=== PATIENT | female | born 1985 | race Caucasian/White ===

== ENCOUNTER 2020-01-25 08:18 | Outpatient (CLI) | payer BC, SELFPAY ==
--- NOTE | ~2020-01-25 | US_ITS ---
EXAMINATION: US thyroid DATE: 01/25/2020 09:05 INDICATION: Nontoxic single thyroid nodule TECHNIQUE: Multiple ultrasound images of the thyroid were obtained. COMPARISON: 03/24/2018 FINDINGS: The right thyroid lobe measures 5.6 x 1.9 x 2.3 cm. Minimal increase in size of a now 3.3 x 2.1 x 2.1 cm predominantly solid hypoechoic nodule in the right thyroid lobe which previously measured 3.2 x 1 .9 x 1.8 cm. The nodule has smooth margins is wider than tall with small amount of coarse shadowing c alcification. (TI-RADS 4, moderately suspicious , FNA if >=1.5 cm, annual followup is >1 cm). The lef t thyroid lobe is not visualized and reportedly surgically absent. No abnormal nodule/soft tissue at the left thyroid fossa. IMPRESSION: 1. 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 2. Status post left thyroidectomy. Reviewed, dictated and finalized at location A. IMPRESSION: 1. Minimal increase in size of a 3.2 cm TI RADS 4 right thyroid nodule with int ervening biopsy demonstrating consistent with benign follicular nodule with fe atures of colloid cyst . 2. Status post left thyroidectomy.
== END 2020-01-25 08:19 | disposition home or self-care (01) ==
PROVIDERS: Visit Provider Otolaryngology
DX: E04.1 Nontoxic single thyroid nodule (principal)
CPT/HCPCS: 76536

== ENCOUNTER 2020-10-03 07:38 | Outpatient (CLI) | payer OTHER, SELFPAY ==
--- NOTE | ~2020-10-03 | US_ITS ---
EXAMINATION: US thyroid DATE: 10/03/2020 08:25 INDICATION: Nontoxic single thyroid nodule TECHNIQUE: Multiple ultrasound images of the thyroid were obtained. COMPARISON: None. FINDINGS: The right thyroid lobe measures 4.9 x 2.7 x 2.2 cm. Status post left thyroidectomy with no abnormal t issue at the left thyroid fossa. Predominant a solid, slightly hypoechoic wider than tall 3.8 x 2.1 x 2.3 cm nodule with smooth margins and without echogenic foci in the right thyroid (TI-RADS 4, modera tely suspicious , FNA if >=1.5 cm, annual followup is >=1 cm). There is normal echotexture, echogenic ity and vascular flow throughout the thyroid gland. IMPRESSION: 1. 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 2. Status post left thyroidectomy. Reviewed, dictated and finalized at location A. IMPRESSION: 1. Continued mild increase in size of a now 3.8 cm TI RADS 4 right thyroid nodu le with prior biopsy on 04/28/2018 demonstrating consistent with benign follicul ar nodule with features of colloid cyst . 2. Status post left thyroidectomy.
== END 2020-10-03 07:39 | disposition home or self-care (01) ==
LOC: ANHIMG 07:43
PROVIDERS: PCP Family Medicine; Visit Provider Internal Medicine Endocrinology, Diabetes & Metabolism
DX: E04.1 Nontoxic single thyroid nodule (principal); E89.0 Postprocedural hypothyroidism
CPT/HCPCS: 76536

== ENCOUNTER 2020-12-13 09:21 | Outpatient (CLI) | payer OTHER, SELFPAY ==
--- NOTE | ~2020-12-13 | US_ITS ---
EXAMINATION: US pelvic complete w TV DATE: 12/13/2020 10:07 INDICATION: Incomplete TECHNIQUE: Multiple transabdominal and endovaginal sonographic images of the pelvis were obtained. COMPARISON: None. FINDINGS: The uterus measures 8.9 x 3.9 x 5.4 cm. The endometrial complex measures 13 mm in thickness at the f undus containing hypoechoic material with some internal vascular flow on color Doppler consistent wit h retained products of conception. The right ovary measures 2.9 x 1.6 x 1.9 cm. The left ovary measur es 3.2 x 2.3 x 2.5 cm. Small anechoic cysts/follicles at both ovaries. Vascular flow with arterial wa veforms is identified at both ovaries on color Doppler. There is a small amount of free fluid in the pelvis at the cul-de-sac and along side both ovaries. IMPRESSION: 1. Retained products of conception. Reviewed, dictated and finalized at location B.
== END 2020-12-13 09:22 | disposition home or self-care (01) ==
PROVIDERS: PCP Family Medicine; Visit Provider Student in an Organized Health Care Education/Training Program
DX: O03.4 Incomplete spontaneous abortion without complication (principal)
CPT/HCPCS: 76830; 76856

== ENCOUNTER 2020-12-14 01:15 | Day surgery (SDC) | payer OTHER, SELFPAY ==
--- NOTE | 2020-12-13 14:00 | P.PNAN_ITS ---
Anes - Initial Pre Proc Eval Procedure: Operation Date: 12/14/20 13:00 Proposed Procedures p Suction Dilatation and Curettage - Jose Siegel MD Date/Time: 12/13/20 14:00 Surgeon: Jose Siegel MD Pre Op Diagnosis: Missed Ab Patient Data Age: 35 Gender: F Height: Weight: Allergies Allergy/AdvReac Type Severity Reaction Status Date / Time lactose Allergy Unknown Hives Verified 12/14/20 11:18 Dairy Allergy Severe Anaphylaxis Uncoded 12/14/20 11:18 Home Medications Medication Instructions Recorded Confirmed Type calcium carbonate 500 mg calcium 500 mg PO HS 02/15/20 12/14/20 History (1,250 mg) tablet Saccharomyces boulardii 250 mg 250 mg PO DAILY 09/26/20 12/14/20 History capsule levothyroxine 112 mcg tablet 112 mcg PO DAILY #60 tablet 10/17/20 12/14/20 Rx mecobalamin (vitamin B12) 1,000 1,000 mcg PO DAILY 10/18/20 12/14/20 History mcg chewable tablet magnesium See Rx Instructions .ROUTE .COMPLEX 12/13/20 12/14/20 History multivit with min-folic acid 1 tablet PO DAILY 12/13/20 12/14/20 History [Adult One Daily Multivitamin] Patient hx anesthesia problems: none Family hx anesthesia problems: none PMFSH Past Medical History Medical History Bradycardia Depression Hx of hypokalemia Hypothyroidism (acquired) Mitral valve disorder Right thyroid nodule Subclinical hyperthyroidism Surgical History Surgical History History of thyroidectomy (~2014) Left side mass Hx of LASIK (~2017) Family History Family History Mother Family history of migraine headaches Family history of allergic disorder Grandparent Diabetes mellitus Other Family history of alcoholism Family history of glaucoma Family history of hypercholesterolemia Family history of mental disorder Hypertension Social History Social History Social History: , 2 children. 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 Smoking status: Never smoker Second hand tobacco smoke exposure: No Alcohol intake: former Drinks per week: 6 Alcohol use details: both beer and hard alcohol Substance use: never Substance use type: does not use Living arrangements: with family Spiritual care concerns: No Anes - Eval Final PreProcedure Day of Procedure 12/13/20 14:00 Patient weight: normal Heart: regular rate and rhythm Lungs: clear to auscultation and normal air movement Airway: Mallampati scale class II Neurological: alert and oriented Last oral intake: >/= 8 hours ASA classification: II Emergent: no Anesthetic plan: proceed Anesthesia type and monitoring: general GIVS and standard monitoring Informed Consent: The patient's anesthetic plan and its attendant risks and benefits were discussed with the patient/family/POA. Questions were solicited and answers provided to the satisfaction of the patient/family/POA.
[2020-12-13 15:50] VITALS: BMI 21.4
[2020-12-14] MEDS: LACTATED RINGERS 1,000 ML 30 ML IV CONT (12:03)
[2020-12-14] MEDS: ACETAMINOPHEN 500 MG TABLET 1000 MG PO (12:09)
--- NOTE | 2020-12-14 12:11 | SUR.PREOP ---
SPOKE WITH DR SEGAL, PT STATES SHE PASSES THE FETUS AT HOME. DR SEGAL CONFIRMS THIS. NO NEED TO SIGN IDPH AND DISPOSITION FORM
[2020-12-14 12:12] VITALS: BP 111/64; PULSE 75; RESP 16; TEMP 37.1; O2SAT 100; BMI 20.9
--- NOTE | 2020-12-14 12:13 | PM.IMHP ---
H&P: HPI History of Present Illness Date/Time: 12/14/20 12:13 35 y/o with SAB, now with continued bleeding. Ultrasound exam suggests retained products of conception. She is here for D&C. No fever, some cramping. Chief Complaint: Bleeding Review of Systems Review of Systems: All systems reviewed & are unremarkable except as noted in HPI and below PMFSH Past Medical History Medical History Bradycardia Depression Hx of hypokalemia Hypothyroidism (acquired) Mitral valve disorder Right thyroid nodule Subclinical hyperthyroidism Surgical History Surgical History History of thyroidectomy (~2014) Left side mass Hx of LASIK (~2017) Family History Family History Mother Family history of migraine headaches Family history of allergic disorder Grandparent Diabetes mellitus Other Family history of alcoholism Family history of glaucoma Family history of hypercholesterolemia Family history of mental disorder Hypertension Social History Social History Social History: , 2 children. 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 status: Never smoker Second hand tobacco smoke exposure: No Alcohol intake: former Drinks per week: 6 Alcohol use details: both beer and hard alcohol Substance use: never Substance use type: does not use Living arrangements: with family Spiritual care concerns: No Meds Home Medications and Allergies Home Medications Medication Instructions Recorded Confirmed Type calcium carbonate 500 mg calcium 500 mg PO HS 02/15/20 12/14/20 History (1,250 mg) tablet Saccharomyces boulardii 250 mg 250 mg PO DAILY 09/26/20 12/14/20 History capsule levothyroxine 112 mcg tablet 112 mcg PO DAILY #60 tablet 10/17/20 12/14/20 Rx mecobalamin (vitamin B12) 1,000 1,000 mcg PO DAILY 10/18/20 12/14/20 History mcg chewable tablet magnesium See Rx Instructions .ROUTE .COMPLEX 12/13/20 12/14/20 History multivit with min-folic acid 1 tablet PO DAILY 12/13/20 12/14/20 History [Adult One Daily Multivitamin] Allergies Allergy/AdvReac Type Severity Reaction Status Date / Time lactose Allergy Unknown Hives Verified 12/14/20 11:18 Dairy Allergy Severe Anaphylaxis Uncoded 12/14/20 11:18 Vital Signs Vital Signs - 24 hr 12/14/20 12:12 Temperature 37.1 C Pulse Rate 75 Respiratory Rate 16 Blood Pressure 111/64 Pulse Oximetry 100 Exam Const: Orientation/consciousness: patient oriented x3 Other: Well-developed, well-nourished female in no acute distress. Neck: Thyroid: thyroid normal Lymphatic: no lymphadenopathy noted (in neck, axilla or inguinal nodes) Resp: Effort & Inspection: normal respiratory effort Auscultation: clear to auscultation bilaterally Cardio: Rate: regular rate Rhythm: regular rhythm Heart sounds: S1 normal heart sound present and S2 normal heart sound present GI: Other: ABD: Soft, nontender, nondistended. No guarding or rebound tenderness. No hepatosplenomegaly. : General: Yes no CVA tenderness Other: Exam deferred to OR Back/Spine/Pelvis: Back: no CVA tenderness Skin: General skin exam: normal color and no rashes or lesions noted Neuro: General: patient oriented x3 Extrem: Other: Extremities: nontender with no edema Psych: Mental Status: mental status grossly normal Affect: normal affect Assessment and Plan Assessment and plan (1) Incomplete spontaneous : Code(s): O03.4 - Incomplete spontaneous without complication Status: Acute Assessment and Plan: A: Incomplete SAB. P: Offered dilation and suction curettage. She understands risks of surgery to include risks of anesthesia, risks of pain, infection, bleeding, blood products, thromboembolic phenomena an
--- NOTE | 2020-12-14 12:16 | WPDHPUPDATE1 ---
History and Physical Update Update Date/Time: 12/14/20 12:16 History and Physical has been reviewed, including an updated exam of the patient. There are NO changes in the patient's condition. Risks, benefits, and alternatives have been discussed and questions answered. Patient agrees to proceed with procedure.
[2020-12-14 12:21] LABS: Hematocrit 36.4 % (37.0-47.0); Hemoglobin 12.4 g/dL (12.0-15.0)
[2020-12-14 13:38] VITALS: BP 104/55; PULSE 64; RESP 16; O2SAT 98
--- NOTE | 2020-12-14 13:38 | P.OP_ITS ---
Procedure Note - Detailed Date of Procedure 12/14/20 Pre-op Diagnosis Incomplete SAB Post-op Diagnosis same Procedure Performed Dilation and suction curettage Surgeon Jose Siegel MD Anesthesia MAC and local (1% lidocaine paracervical block) Findings POC noted extruding through cervix. Cervix already dilated at start of procedure. Small additional POC noted on curettage. Description of Procedure The patient was taken to the operating room where she was prepared and draped in the usual sterile fashion in the dorsal lithotomy position. The bladder was drained with a red rubber catheter. A sterile speculum was placed into the vagina. A ring forceps was used to grasp and remove the tissue extruding through the cervix. The anterior lip of the cervix was grasped with a single- tooth tenaculum. Ten mL of 1% lidocaine was administered in a paracervical block. The 8mm Hegar dilator was able to be passed. The 8mm curved tip suction curette was advanced. Suction curettage was performed and products of conception were aspirated. Sharp curettage was then performed until a good uterine cry was noted. A final pass with the suction curette was made. The tenaculum was removed. Hemostasis was excellent. Sponge, lap, needle and instrument counts were correct. The patient was taken to the recovery room in stable condition. I was present and scrubbed for the entire procedure. Estimated Blood Loss 30 Drains No Packing No Pathology yes (endometrial curettings) Complications None Condition stable Disposition PACU
[2020-12-14 14:10] VITALS: BP 106/63; PULSE 51
[2020-12-14 14:25] VITALS: BP 110/64; PULSE 47
== END 2020-12-14 14:35 | disposition home or self-care (01) ==
PROVIDERS: PCP Family Medicine; Visit Provider Obstetrics & Gynecology
PROC: (CPT 59812; principal; 2020-12-14 13:00)
DX: O03.4 Incomplete spontaneous abortion without complication (principal); E89.0 Postprocedural hypothyroidism; I34.1 Nonrheumatic mitral (valve) prolapse
CPT/HCPCS: 59812; 36415; 85014; 85018; 85461; 88305; A9270; J1100; J2250; J2405; J2704; J3010; J7030; J7120

== ENCOUNTER 2020-12-20 08:15 | Outpatient (CLI) | payer OTHER, SELFPAY ==
--- NOTE | ~2020-12-20 | XR_ITS ---
EXAMINATION: XR chest 2V DATE: 12/20/2020 08:39 INDICATION: Pulmonary nodules TECHNIQUE: PA and lateral views of the chest are obtained. COMPARISON: None available FINDINGS: The lungs are free of acute opacities. No pulmonary nodules are identified. There is no ple ural effusion or pneumothorax. The cardiomediastinal silhouette is normal. The visualized bones and s oft tissues are unremarkable. IMPRESSION: 1. No acute cardiopulmonary abnormality. Reviewed, dictated and finalized at location A.
== END 2020-12-20 08:16 | disposition home or self-care (01) ==
LOC: ANHIMG 08:21
PROVIDERS: PCP Family Medicine; Visit Provider Family Medicine
DX: R93.89 Abnormal findings on diagnostic imaging of other specified body structures (principal)
CPT/HCPCS: 71046

== ENCOUNTER 2021-04-05 08:47 | Outpatient (CLI) | payer OTHER, SELFPAY ==
--- NOTE | ~2021-04-05 | US_ITS ---
EXAMINATION: US thyroid EXAM DATE: 04/05/2021 09:45 INDICATION: Increasing right nodule size. Right thyroid lobe biopsied today. TECHNIQUE: Multiple grayscale and Doppler images of the thyroid were obtained (by a technologist who performed the scan) and subsequently reviewed. Individual nodules and recommendations may be reporte d in accordance with TI-RADS system as designated by the 2017 ACR White Paper TI-RADS committee. Comp shivson is made to prior examination from 10/03/2020, 03/24/2018. FINDINGS: The right thyroid lobe measures 4.0 x 2.0 x 2.3 cm, with significant portion of this volume taken up by a hypervascular category TR 4 nodule measuring 3.2 x 1.5 x 2.1 cm. Dimensions provided on exam in September were 3.8 x 2.1 x 2.3 cm, and in 2017 3.2 x 1.8 x 1.9 cm. Correlate with histology results. IMPRESSION: 1. Right thyroid lobe nodule unchanged in size accounting for differences in technique. 2. Unremarkable left thyroidectomy bed. Reviewed, dictated and finalized at location B. TATISTICS DIRECTOR IMPRESSION: 1. Right thyroid lobe nodule unchanged in size accounting for differences in t echnique. 2. Unremarkable left thyroidectomy bed.
--- NOTE | ~2021-04-05 | US_ITS ---
EXAMINATION: US FNA w image guidance DATE: 04/05/2021 09:48 INDICATION: Right thyroid nodule. TECHNIQUE: The procedure and its benefits and risks were discussed with the patient. Risks specifically discusse d included bleeding. The patient verbalized understanding of the risks and agreed to proceed. The nec k was prepped and draped in the usual sterile manner. 1% lidocaine was used for local anesthesia. 5 passes were made with a 25G needle into the lesion under ultrasound guidance. There were no immedia te complications. FINDINGS: Grayscale ultrasound images demonstrate needles advanced into a 3.7 cm nodule in right thyroid lobe f or biopsy. IMPRESSION: 1. Ultrasound-guided fine needle aspiration of a 3.7 cm nodule in right thyroid lobe. Reviewed, dictated and finalized at location A. NSTITCH ELASTIC ATTACHER IMPRESSION: 1. Ultrasound-guided fine needle aspiration of a 3.7 cm nodule in right thyroi d lobe.
== END 2021-04-05 08:48 | disposition home or self-care (01) ==
LOC: ANHIMG 08:48
PROVIDERS: PCP Family Medicine; Visit Provider Internal Medicine Endocrinology, Diabetes & Metabolism
DX: E03.9 Hypothyroidism, unspecified (principal); E04.1 Nontoxic single thyroid nodule
CPT/HCPCS: 10005; 76536; 88173; 88305

== ENCOUNTER 2021-06-06 07:37 | Outpatient (CLI) | payer OTHER, SELFPAY ==
[2021-06-06 20:16] LABS: Free T4 Free Thyroxine 1.23 ng/mL (0.78-2.19)
[2021-06-06 20:31] LABS: Thyroid Stimulating Hormone 0.767 uIU/mL (0.465-4.680)
== END 2021-06-06 07:38 | disposition home or self-care (01) ==
LOC: ANHASCLAB 07:40
PROVIDERS: PCP Family Medicine; Visit Provider Internal Medicine Endocrinology, Diabetes & Metabolism
DX: E03.9 Hypothyroidism, unspecified (principal)
CPT/HCPCS: 36415; 84439; 84443

== ENCOUNTER 2022-08-02 00:43 | Day surgery (SDC) | payer OTHER, SELFPAY ==
[2022-07-19 14:03] VITALS: BMI 22.3
[2022-08-02 07:52] VITALS: BP 116/72; PULSE 63; RESP 18; TEMP 36.3; O2SAT 100; BMI 22.1
[2022-08-02] MEDS: LACTATED RINGERS 1,000 ML 150 ML IV CONT (07:55)
--- NOTE | 2022-08-02 08:17 | WPDANESEPPF ---
Anes - Initial Pre Proc Eval Procedure: Operation Date: 08/02/22 09:00 Proposed Procedures p Colonoscopy - Dong Mccoy MD Date/Time: 08/02/22 08:17 Surgeon: Dong Mccoy MD Pre Op Diagnosis: hx colon polyps Patient Data Age: 37 Gender: F Height: 1.63 m Weight: 58.7 kg Last Vital Signs Temp 97.3 F L 08/02/22 07:52 Pulse 63 08/02/22 07:52 Resp 18 08/02/22 07:52 BP 116/72 08/02/22 07:52 Pulse Ox 100 08/02/22 07:52 O2 Del Method Room Air 08/02/22 07:52 Allergies Allergy/AdvReac Type Severity Reaction Status Date / Time lactose Allergy Unknown Hives Verified 08/02/22 07:50 Dairy Allergy Severe Anaphylaxis Uncoded 08/02/22 07:50 Home Medications Medication Instructions Recorded Confirmed Type multivitamin with minerals-folic 1 tablet PO DAILY 12/13/20 07/19/22 History acid 0.4 mg tablet (Adult One Daily Multivitamin) calcium carbonate 333 mg-magnesium 1 tablet PO DAILY 05/17/21 07/19/22 History oxide 133 mg-zinc gluc 5 mg tablet magnesium 100 mg tablet 100 mg PO DAILY 05/17/21 07/19/22 History prasterone (dhea) 50 mg capsule 50 mg PO 2XW 08/07/21 07/19/22 History (DHEA) progesterone micronized 100 mg 100 mg PO .COMPLEX 08/07/21 07/19/22 History capsule levothyroxine 75 mcg capsule 75 mcg PO DAILY #90 caps 03/20/22 07/19/22 Rx (Tirosint) escitalopram oxalate 10 mg tablet 10 mg PO DAILY #30 tabs 07/06/22 07/19/22 Rx (Lexapro) Lactobacillus 1 cap PO DAILY 07/19/22 07/19/22 History acidophilus-Bifidobac.animalis 2.5 billion cell capsule (Daily Probiotic) cetirizine 10 mg tablet (Zyrtec) 10 mg PO DAILY 07/19/22 07/19/22 History fluticasone propionate 50 2 spray intranasal DAILY PRN 07/19/22 07/19/22 History mcg/actuation nasal Allergy Symptoms spray,suspension (Flonase Allergy Relief) psyllium husk 3.4 gram/5.4 gram 1 tbsp PO DAILY 07/19/22 07/19/22 History oral powder (Metamucil) testosterone 1 % (50 mg/5 gram) 2 packet transdermal QAM 07/19/22 07/19/22 History transdermal gel packet Patient hx anesthesia problems: none Family hx anesthesia problems: none Results Review: All pre-operative results and documents have been reviewed as part of the pre-operative evaluation. [facility] Past Medical History Medical History (Updated 07/02/22 @ 13:45 by Owen Alvarado MD) Bradycardia Depression History of colon polyps Hx of hypokalemia Hypothyroidism (acquired) Incomplete spontaneous Miscarriage Mitral valve disorder Right thyroid nodule Subclinical hyperthyroidism Surgical History Surgical History History of thyroidectomy (~2014) Left side mass Hx of LASIK (~2017) Family History Family History Mother Family history of migraine headaches Family history of allergic disorder Grandparent Diabetes mellitus Other Family history of alcoholism Family history of glaucoma Family history of hypercholesterolemia Family history of mental disorder Hypertension Social History Social History Social History: , 2 children. 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 Smoking status: Never smoker Second hand tobacco smoke exposure: No Alcohol intake: current Drinks per week: 6 Alcohol use details: both beer and hard alcohol Substance use: never Substance use type: does not use Living arrangements: with family Spiritual care concerns: No Anes - Eval Final PreProcedure Day of Procedure 08/02/22 08:17 Patient weight: normal Heart: regular rate and rhythm Lungs: clear to auscultation Airway: Mallampati scale class II Neurological: alert and oriented Last oral intake: >/= 8 hours ASA classification: III Emergent: no Anesthetic plan: proceed Anesthesia type and monitoring: general GIVS and standard monitoring
--- NOTE | 2022-08-02 08:27 | PM.HPGS ---
History of Present Illness History of Present Illness Consent: Risks, benefits, and alternatives have been discussed and questions answered. Patient agrees to proceed with procedure. Chief complaint: hx colon polyps Narrative: Varsha Marmolejo is a 37 year old female Presents for screening colonoscopy. Patient's current weight appetite and bowel movements are normal. Patient denies abdominal pain. She has had no bleeding. Patient reports her father has had colon polyps. Patient reports at age 18 she had colon polyps identified at time of colonoscopy evaluated because of hemorrhoidal bleeding. These records are not immediately available for review. Histologic type of polyp not available. Patient presents today for neoplasia screening. Review of Systems Review of Systems: review of systems noncontributory. [facility] Past Medical History Medical History (Updated 07/02/22 @ 13:45 by Owen Alvarado MD) Bradycardia Depression History of colon polyps Hx of hypokalemia Hypothyroidism (acquired) Incomplete spontaneous Miscarriage Mitral valve disorder Right thyroid nodule Subclinical hyperthyroidism Surgical History Surgical History History of thyroidectomy (~2014) Left side mass Hx of LASIK (~2018) Family History Family History Mother Family history of migraine headaches Family history of allergic disorder Grandparent Diabetes mellitus Other Family history of alcoholism Family history of glaucoma Family history of hypercholesterolemia Family history of mental disorder Hypertension Social History Social History Social History: , 2 children. 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 Smoking status: Never smoker Second hand tobacco smoke exposure: No Alcohol intake: current Drinks per week: 6 Alcohol use details: both beer and hard alcohol Substance use: never Substance use type: does not use Living arrangements: with family Spiritual care concerns: No Meds Home Medications and Allergies Home Medications Medication Instructions Recorded Confirmed Type multivitamin with minerals-folic 1 tablet PO DAILY 12/13/20 07/19/22 History acid 0.4 mg tablet (Adult One Daily Multivitamin) calcium carbonate 333 mg-magnesium 1 tablet PO DAILY 05/17/21 07/19/22 History oxide 133 mg-zinc gluc 5 mg tablet magnesium 100 mg tablet 100 mg PO DAILY 05/17/21 07/19/22 History prasterone (dhea) 50 mg capsule 50 mg PO 2XW 08/07/21 07/19/22 History (DHEA) progesterone micronized 100 mg 100 mg PO .COMPLEX 08/07/21 07/19/22 History capsule levothyroxine 75 mcg capsule 75 mcg PO DAILY #90 caps 03/20/22 07/19/22 Rx (Tirosint) escitalopram oxalate 10 mg tablet 10 mg PO DAILY #30 tabs 07/06/22 07/19/22 Rx (Lexapro) Lactobacillus 1 cap PO DAILY 07/19/22 07/19/22 History acidophilus-Bifidobac.animalis 2.5 billion cell capsule (Daily Probiotic) cetirizine 10 mg tablet (Zyrtec) 10 mg PO DAILY 07/19/22 07/19/22 History fluticasone propionate 50 2 spray intranasal DAILY PRN 07/19/22 07/19/22 History mcg/actuation nasal Allergy Symptoms spray,suspension (Flonase Allergy Relief) psyllium husk 3.4 gram/5.4 gram 1 tbsp PO DAILY 07/19/22 07/19/22 History oral powder (Metamucil) testosterone 1 % (50 mg/5 gram) 2 packet transdermal QAM 07/19/22 07/19/22 History transdermal gel packet Allergies Allergy/AdvReac Type Severity Reaction Status Date / Time lactose Allergy Unknown Hives Verified 08/02/22 07:50 Dairy Allergy Severe Anaphylaxis Uncoded 08/02/22 07:50 Vital Signs Vital Signs - 24 hr 08/02/22 07:52 Temperature 97.3 F L Pulse Rate 63 Respiratory Rate 18 Blood Pressure 116/72 Pulse Oximetry 100 Oxygen Delivery Room Air Exam Narrative: Physical e
[2022-08-02 09:32] VITALS: BP 88/54; PULSE 60; RESP 19; O2SAT 100
[2022-08-02 09:42] VITALS: BP 92/60; PULSE 50; RESP 19; O2SAT 100
[2022-08-02 09:52] VITALS: BP 104/70; PULSE 54; RESP 15; O2SAT 100
== END 2022-08-02 10:04 | disposition home or self-care (01) ==
PROVIDERS: PCP Family Medicine; Visit Provider Internal Medicine Gastroenterology
PROC: 0DJD8ZZ Inspection of Lower Intestinal Tract, Via Natural or Artificial Opening Endoscopic (ICD-10-PCS; CPT 45378; principal; 2022-08-02 09:00)
DX: Z12.11 Encounter for screening for malignant neoplasm of colon (principal); K64.8 Other hemorrhoids; Z86.010 Personal history of colon polyps; Z83.71 Family history of colonic polyps; E89.0 Postprocedural hypothyroidism; F32.A Depression, unspecified
CPT/HCPCS: 45378; J2704; J7120

== ENCOUNTER 2022-08-10 08:08 | Outpatient (CLI) | payer OTHER, SELFPAY ==
[2022-08-10 13:46] LABS: Basophils Absolute Auto 0.1 K/mm3 (0.0-0.1); Basophils Percent Auto 1.1 % (0.2-1.2); Eosinophils Absolute Auto 0.1 K/mm3 (0-0.3); Eosinophils Percent Auto 1.4 % (0-4.4); Immature Granulocyte Absolute 0.02 K/mm3 (0.00-0.031); Immature Granulocyte Percent A 0.4 % (0-0.5); Lymphocytes Absolute Auto 1.16 K/mm3 (0.9-3.2); Lymphocytes Percent Auto 20.4 % (18.3-44.2); Mean Corpuscular HGB Conc 33.3 g/dl (32-36); Mean Corpuscular Hemoglobin 31.4 pg (26-34); Mean Corpuscular Volume 94.2 fl (80-100); Mean Platelet Volume 10.3 fl (7.4-10.4); Monocytes Absolute Auto 0.4 K/mm3 (0.1-0.6); Monocytes Percent Auto 6.8 % (2.6-8.5); Neutrophils Percent Auto 69.9 % (45.5-73.1); Platelet Count Result 251 k/mm3 (150-375); Red Blood Count 4.14 M/mm3 (4.2-5.4); Red Cell Distribution Width 12.4 % (11.5-14.5); White Blood Count 5.7 K/mm3 (4.5-10.0)
[2022-08-10 13:58] LABS: Alanine Aminotransferase 28 U/L (6-35); Albumin Level 4.3 g/dL (3.5-5.1); Alkaline Phosphatase 57 U/L (38-126); Anion Gap 7 mmol/L (8-16); Aspartate Amino Transferase 42 U/L (14-36); Bilirubin,Total 0.8 mg/dL (0.2-1.3); Blood Urea Nitrogen 10 mg/dL (7-17); Calcium 9.2 mg/dL (8.4-10.2); Carbon Dioxide 29 mmol/L (22-30); Chloride 102 mmol/L (98-107); Cholesterol 136 mg/dL (0-200); Estimated Glomerular Filt Rate > 60; Glucose 71 mg/dL (65-110); HDL Direct 77 mg/dL; Potassium 3.8 mmol/L (3.4-5.0); Sodium 138 mmol/L (137-145); Triglycerides 43 mg/dL (<150)
[2022-08-10 14:09] LABS: LDL Cholesterol Direct 39 mg/dL
[2022-08-10 14:42] LABS: Vitamin D 25 Hydroxy 59.8 ng/mL
[2022-08-17 17:10] LABS: Gliadin AB, IgG <1.0 U/mL (<15.0); TTG IGA AB <1.0 U/mL (<15.0)
== END 2022-08-10 08:09 | disposition home or self-care (01) ==
LOC: ANHGOSHLAB 08:10
PROVIDERS: PCP Family Medicine; Visit Provider Family Medicine
DX: E53.8 Deficiency of other specified B group vitamins (principal); E55.9 Vitamin D deficiency, unspecified; E78.5 Hyperlipidemia, unspecified; I10 Essential (primary) hypertension; R10.9 Unspecified abdominal pain; R14.0 Abdominal distension (gaseous)
CPT/HCPCS: 36415; 80053; 80061; 82306; 82607; 85025; 86255; 86364

== ENCOUNTER 2022-11-23 13:00 | Outpatient (CLI) | payer OTHER, SELFPAY ==
[2022-11-23 14:42] LABS: Alanine Aminotransferase 25 U/L (6-35); Albumin Level 4.4 g/dL (3.5-5.1); Alkaline Phosphatase 67 U/L (38-126); Anion Gap 4 mmol/L (8-16); Aspartate Amino Transferase 37 U/L (14-36); Bilirubin,Total 0.6 mg/dL (0.2-1.3); Blood Urea Nitrogen 9 mg/dL (7-17); Calcium 9.1 mg/dL (8.4-10.2); Carbon Dioxide 31 mmol/L (22-30); Chloride 101 mmol/L (98-107); Estimated Glomerular Filt Rate > 60; Glucose 90 mg/dL (65-110); Potassium 3.6 mmol/L (3.4-5.0); Sodium 136 mmol/L (137-145)
== END 2022-11-23 13:01 | disposition home or self-care (01) ==
LOC: ANHGOSHLAB 13:01
PROVIDERS: PCP Family Medicine; Visit Provider Family Medicine
DX: R74.01 Elevation of levels of liver transaminase levels (principal)
CPT/HCPCS: 36415; 80053

== ENCOUNTER 2023-10-30 09:57 | Outpatient (RCR) | payer OTHER, SELFPAY ==
[2023-11-05 09:00] LABS: Triiodothyronine T3 Free 3.3
[2023-11-05 09:01] LABS: TSH QUEST 0.24
[2023-11-05 09:02] LABS: Free T4 Q 1.2
== END 2024-01-28 23:59 | disposition home or self-care (01) ==
LOC: ANHGOSHLAB 09:57
PROVIDERS: PCP Family Medicine; Visit Provider Internal Medicine Endocrinology, Diabetes & Metabolism
DX: E89.0 Postprocedural hypothyroidism (principal)
CPT/HCPCS: 36415; 84481; 86376

== ENCOUNTER 2025-01-07 10:39 | Outpatient (CLI) | payer OTHER, SELFPAY ==
[2025-01-07 11:13] LABS: Hematocrit 38.1 % (37.0-47.0); Hemoglobin 12.6 g/dL (12.0-15.0); Immature Granulocyte Percent A 0.4 % (0-0.5); Lymphocytes Absolute Auto 1.87 K/mm3 (0.9-3.2); Mean Corpuscular HGB Conc 33.1 g/dl (32-36); Mean Corpuscular Hemoglobin 30.4 pg (26-34); Mean Corpuscular Volume 92.0 fl (80-100); Nucleated Red Blood Cells Absolute Auto 0.000 K/mm3 (0.0-0.012); Nucleated Red Blood Cells Perc 0.0 % (0.0-0.2); Platelet Count Result 234 k/mm3 (150-375); Red Blood Count 4.14 M/mm3 (4.2-5.4); White Blood Count 7.1 K/mm3 (4.5-10.0)
--- OUTSIDE RECORDS SUMMARY | 2025-01-07 11:19 | XMS_ITS | Encounter Summary ---
Author Organization [facility] Address [address] [place] [address] Care Team Providers Care Supervisor [employer]nament[employer] Name Role Phone Elo Medrano MD Primary Care Provider Vivi Clayton MD Primary Care Provider Ernie Dewitt MD Primary Care Provider [phone] Encounter Details Date Type Department Care Team (Late st Contact Info) Description 03/31/2015 Orders Only [facility] Health Information Management [address] [place] [address] Scanning, Provider Social History Tobacco Use Types Packs/Day Years Used Date Smoking Tobacco: Never Assessed Comments Unknown Sex and Gender Information Value Date Recorded Sex Assigned at Not on file Legal Sex Female 8:07 AM INSOLE FILLER Gender Identity Not on file Sexual Orientation Not on file documented as of this encounter Plan of Treatment Not on file documented as of this encounter Procedures Procedure Name Priority Date/Time Associated Diagnosis Comments CARDIOLOGY DOCUMENT SCAN 03/31/2015 documented in this encounter Results * SCAN - CARDIOLOGY (03/31/2015) Anatomical Region Laterality Modality Other us Provider Scanning CV CARDIAC SERVICES PROCEDURES Final Result documented in this encounter Visit Diagnoses Not on filedocumented in this encounter Care Teams Supervisor [employer]working Relationship Specialty [place] [address] [place] [address] [place] [address] PCP - General Family Medicine 07/23/17 04/19/19 Vivi Clayton MD [address] [address] PCP - General Family Medicine 04/20/19 11/17/20 Ernie Dewitt MD [address] [place] [id number] PCP - General Family Practice 06/25/23 documented as of this encounter
--- OUTSIDE RECORDS SUMMARY | 2025-01-07 11:20 | XMS_ITS | Encounter Summary ---
Author Organization [facility] Healthcare Address [address] [place] [address] Care Team Providers Care Flight Security Specialist Name Role Phone Ernie Dewitt MD Primary Care Provider [phone] Encounter Details Date Type Department Care Team (Late st Contact Info) Description 11/11/2024 Results Follow-Up [facility] [address] [address] [place] [address] [address] TSH, T4, free Social History Tobacco Use Types Packs/Day Years Used Date Smoking Tobacco: Never Smokeless Tobacco: Never Alcohol Use Standard Drinks/Week Comments Never 0 (1 standard drink = 0.6 oz pur e alcohol) AUDIT-C Answer Date Recorded Frequency of Alcohol Consumption Never 04/20/2019 Average Number of Drinks Not on file 019 Frequency of Binge Drinking Not on file 03/24 Comments Unknown Sex and Gender Information Value Date Recorded Sex Assigned at Not on file Legal Sex Female 8:07 AM CUSTOMER SUPPORT SPECIALIST Gender Identity Not on file Sexual Orientation Not on file documented as of this encounter Plan of Treatment Not on file documented as of this encounter Visit Diagnoses Not on filedocumented in this encounter Care Teams Flight Security Specialist Relationship Specialty Start Date End Date Ernie Dewitt MD NPI: [id number] [place] [address] PCP - General Family Practice 06/25/23 documented as of this encounter
--- OUTSIDE RECORDS SUMMARY | 2025-01-07 11:20 | XMS_ITS | Clinical Summary ---
Author Organization [facility] Address [address] [facility] [place] [address] Care Team Providers Care Power System Dispatcher Name Role Phone Elo Medrano MD Primary Care Provider Source Comments [facility],non-owned Affiliates and Associated Physician Practices is amultiple site organization consisting of ambulatory clinics and hospital sitesin [place], [place], [place] and [place]. This disclosure is being madepursuant to the Care Everywhere program and may not contain all information available regarding this patient. Last updated 18.[facility] Active Problems Patient Care Coordination No te Formatting of this note migh t be different from the original. 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 08/28/2018 Family history of open neural tube defect Social History Tobacco Use Types Packs/Day Years Used Date Smoking Tobacco: Never Assessed Comments No Sex and Gender Information Value Date Recorded Sex Assigned at Not on file Legal Sex Female 8:39 AM FILM SOUND COORDINATOR Gender Identity Not on file Sexual Orientation Not on file Plan of Treatment Health Maintenance Due Date Last Done Comments HIV SCREENING 2000 HEPATITIS C SCREENING 06/07/2003 DTAP/TDAP/TD VACCINES (1 - Tdap) 2004 HEPATITIS B VACCINE (1 of 3 - 19+ 3-dose series) 2004 HPV VACCINE (1 - 3-dose SCDM series) 2012 DEPRESSION SCREENING 04/22/2024 COVID-19 VACCINE (1 - 2023-2 5 season) 2024 INFLUENZA VACCINE (#1) 2024 ZOSTER VACCINE (1 of 2) 2035 HIB VACCINE Aged Out No longer eligi ble based on patient's age to complete this topic MENINGOCOCCAL (Group B) VACC INE SHARED DECISION-MAKING Aged Out No longer eligibl e based on patient's age to complete this topic MENINGOCOCCAL GROUPS A/C/Y/W VACCINE Aged Out No longer eligible b ased on patient's age to complete this topic PNEUMOCOCCAL VACCINE Aged Out No long er eligible based on patient's age to complete this topic Insurance * Guarantor: Varsha Clement Account Type Relation to Patient Date of Phone Billing Address Personal/Family Self 1985 [address] [place] [address] [employer] Care Teams Power System Dispatcher Relationship Specialty Start Date End Date Elo Medrano MD PCP - General Family Medicine 08/29/18
--- OUTSIDE RECORDS SUMMARY | 2025-01-07 11:20 | XMS_ITS | Clinical Summary ---
Author Organization [facility] Address [address] [facility] [place] [address] Phone Care Team Providers Care Protection Manager Name Role Phone Unavailable Primary Care Provider Unavailabl e Allergies Active Allergy Reactions Criticality Noted Date Comments Lactase Hives High 03/23/2019 Medications escitalopram oxalate (LEXAPRO) 10 mg tablet Take 10 mg by mouth daily. Active levothyroxine 125 mcg tablet Take 125 mcg by mouth daily trapper bird. Active PNV no.133/ferrous fum/folic ( ORAL) Take by mouth. Active CALCIUM ORAL Take by mouth. Active OTHER Goat's rue Active Active Problems No known active problems Family History Medical History Relation Name Comments Heart Disease Maternal Grandfather Hypertension Paternal Grandfather Breast Cancer Neg Hx Ovarian Cancer Neg Hx Uterine Cancer Neg Hx Relation Name Status Comments Maternal Grandfather Paternal Grandfather Social History Tobacco Use Types Packs/Day Years Used Date Smoking Tobacco: Never Smokeless Tobacco: Never Alcohol Use Standard Drinks/Week Comments Yes 3 (1 standard drink = 0.6 oz pur e alcohol) Comments No Sex and Gender Information Value Date Recorded Sex Assigned at Not on file Legal Sex Female 8:45 AM NURSE ADMINISTRATOR Gender Identity Not on file Sexual Orientation Not on file Last Filed Vital Signs Vital Sign Reading Time Taken Comments Blood Pressure 123/60 03/23/2019 9:11 AM NURSE ADMINISTRATOR Pulse - - Temperature - - Respiratory Rate - - Oxygen Saturation - - Inhaled Oxygen Concentration - - Weight 65.8 kg (145 lb) 03/23/2019 9:11 AM NURSE ADMINISTRATOR Height 162.6 cm (5' 4) 03/23/2019 9:11 AM NURSE ADMINISTRATOR Body Mass Index 24.89 03/23/2019 9:11 AM NURSE ADMINISTRATOR Plan of Treatment Health Maintenance Due Date Last Done Comments DTAP/TDAP/TD VACCINES (1 - Tdap) 2004 HEPATITIS B VACCINES (1 of 3 - 19+ 3-dose series) 05/24 HPV/Cotest (21-29) 2006 HPV VACCINES (1 - 3-dose SCDM series) 2012 CERVICAL CANCER SCREENING 2015 HPV/Cotest (30-65) 2015 PAP SMEAR 2015 INFLUENZA VACCINE (#1) 2024 Insurance * Guarantor: Varsha Marmolejo Account Type Relation to Patient Date of Phone Billing Address Personal/Family Self 1985 [address] [place] [address] [facility] BLUE PREFERRED
--- OUTSIDE RECORDS SUMMARY | 2025-01-07 11:20 | XMS_ITS | Clinical Summary ---
Author Organization [facility] Building [address] [place] [address] Care Team Providers Care Tyre Builder Name Role Phone Ernie Dewitt MD Primary Care Provider [phone] Allergies Active Allergy Reactions Criticality Noted Date Comments Lactase Hives Medium 03/23/2019 Medications escitalopram (LEXAPRO) 10 mg tablet Take 0.5 tablets (5 mg total) by mouth daily 2 Active progesterone (PROMETRIUM) 100 mg capsule Take 2 capsules (200 mg total) by mouth daily Last half of menstral cycle Active therapeutic multivitamin (THERA) tabletIndications:V itamin Deficiency Prevention Take 1 tablet by mouth 2 (two) times a day Active vitamin D3-vitamin K2 25 mcg (1,000 unit)-90 mcg tablet,disintegrati ng Take 1 tablet by mouth daily Active docosahexaenoic acid/epa (FISH OIL ORAL) Take 1 capsule by mouth daily Active alpha lipoic acid 100 mg capsule Take 1 capsule (100 mg total) by mouth 2 (two) times a day Active multivitamin with minerals (AMMON MULTIPLE/CHELATED MINERAL ORAL) Take 1 capsule by mouth 2 (two) times a day Active UNABLE TO FIND Opti Binder - takes one at bedtime for heavy metal toxins Active UNABLE TO FIND DIM - takes one at bedtime for elevated estrogen Active scopolamine 1 mg over 3 days patch [address] 1 patch on the skin once 5 Active naltrexone 4.5 mg capsule Take by mouth Active Synthroid 75 mcg tabletIndications:P ostoperative hypothyroidism Take 1 tablet (75 mcg total) by mouth daily 90 tablet 3 5 Active Active Problems Problem Noted Date Diagnosed Date Right thyroid nodule 10/18/2021 Assessment & Plan (10/28/2023 12:18 PM CDT): Status post left thyroidectomy, benign pathology, 3.8 cm right thyroid nodule status post FNA 3 times in the past with benign cytology Performed a follow-up thyroid ultrasound in office today noted to stable right thyroid nodule patient does not have any compressive symptoms Recommend no surgery at this point , continue with clinical and radiological monitoring Follow-up in 1 year Assessment & Plan (10/29/2022 8:24 AM CDT): Status post left thyroidectomy, benign pathology, 3.8 cm right thyroid nodule status post FNA 3 times in the past with benign cytology Performed a follow-up thyroid ultrasound in office today noted to stable right thyroid nodule patient does not have any compressive symptoms Recommend no surgery at this point , continue with clinical and radiological monitoring Follow-up in 1 year Assessment & Plan (10/19/2021 1:30 PM CDT): Status post left thyroidectomy, benign pathology, 3.8 cm right thyroid nodule status post FNA 3 times in the past with benign cytology Performed a follow-up thyroid ultrasound in office today noted to stable right thyroid nodule Assured patient that right thyroid nodule chance of being benign is close to 95%, has been biopsied 3 times in the past with benign cytology, patient does not have any compressive symptoms Recommend no surgery at this point , continue with clinical and radiological monitoring Follow-up in 1 year Chest tightness 06/09/2021 Postoperative hypothyroidism 06/09/2021 Assessment & Plan (10/28/2023 12:18 PM CDT): Chronic, unknown status Patient currently on Synthroid 75 mcg oral daily Recheck thyroid function test today and further plans based on it. Assessment & Plan (10/29/2022 8:25 AM CDT): Continue current dose of Levoxyl therapy Repeat thyroid function test and further plans based on it Reviewed TSH, within normal limits Continue current Levoxyl dose Assessment & Plan (10/19/2021 1:29 PM CDT): Continue current dose of Levoxyl therapy Recent TSH within normal limits History of COVID-19 06/09/2021 Essential tremor 12/21/2020 Assessment & Plan (12/21/2020 10:15 AM CDT): She has a history of a fine action tremor in both hands, noticeable over the last 6 months but likely present since childhood. This comes and goes by day and I currently do not see a tremor on exam. However, her history is rather convincing that this is the tremor type. She has no other abnormalities in exam to suggest an alternative diagnosis. She also does not want treatment right now as she does not think the rare issues at her work with this tremor warrant daily medication, which seems reasonable to me. She will plan to come back if the tremor progresses to the point where she does want symptomatic management. 1. Return prn Palpitations 04/20/2019 Dizziness 04/20/2019 Mitral valve prolapse 04/20/2019 Bradycardia 04/20/2019 S/P partial thyroidectomy 10/18/2014 Encounters Date Type Department Care Team Description 11/11/2024 Results Follow-Up [facility] of [address] [id number] Nicolasa Hamlin MD TSH, T4, free 11/02/2024 9:00 AM CDT Office Visit [facility] Diabetes and Endocrinology [address] [place] [address] Nicolasa Hamlin MD Postoperative hypothyroidism (Primary Dx); Right thyroid nodule; S/P partial thyroidectomy from Last 3 Months Surgical History Surgery Date Site/Laterality Comments VARICOSE VEIN SURGERY Medical History Medical History Date Comments Hypothyroidism Anxiety Arrhythmia GERD (gastroesophageal reflux disease) Family History Medical History Relation Name Comments Hypertension Father Tremor Paternal Grandmother Relation Name Status Comments Father Alive Mother Alive Paternal Grandmother Social History Tobacco Use Types Packs/Day Years Used Date Smoking Tobacco: Never Smokeless Tobacco: Never Tobacco Cessation:Counseling Given: Not Answered Alcohol Use Standard Drinks/Week Comments Never 0 (1 standard drink = 0.6 oz pur e alcohol) AUDIT-C Answer Date Recorded Frequency of Alcohol Consumption Never 04/20/2019 Average Number of Drinks Not on file 019 Frequency of Binge Drinking Not on file 03/24 Comments Unknown Sex and Gender Information Value Date Recorded Sex Assigned at Not on file Legal Sex Female 8:07 AM LINEN CONTROLLER Gender Identity Not on file Sexual Orientation Not on file Obstetrics History Last Filed Vital Signs Vital Sign Reading Time Taken Comments Blood Pressure 100/70 11/02/2024 9:08 AM CDT Pulse 81 11/02/2024 9:08 AM CDT Temperature 36.4 C (97.6 F) 12/21/2020 9:13 AM CDT Respiratory Rate 15 11/02/2024 9:08 AM CDT Oxygen Saturation 99% 07/27/2024 8:15 AM CDT Inhaled Oxygen Concentration - - Weight 59.9 kg (132 lb) 11/02/2024 9:08 AM CDT Height 162.6 cm (5' 4) 11/02/2024 9:08 AM CDT Body Mass Index 22.66 11/02/2024 9:08 AM CDT Plan of Treatment Health Maintenance Due Date Last Done Comments Cervical Cancer Screening 1985 Depression Screening 1985 Hepatitis C Screening 1985 Varicella Vaccines (1 of 2 - 13+ 2-dose series) 1998 Hepatitis B Screening 2003 Regular Well Visit/Exam 18-64 2003 HPV Vaccines (1 - 3-dose SCD M series) 2012 Influenza Vaccine (#1) 2024 DTaP/Tdap/Td Vaccine (2 - Td or Tdap) 12/11/2028 12/11/2018 Pneumococcal vaccine <65 Aged Out No longer eligible based on patient's age to complete this topic Procedures Procedure Name Priority Date/Time Associated Diagnosis Comments T4, FREE Routine 11/09/2024 1:14 PM CDT Postoperative hypothyroidism TSH Routine 11/09/2024 1:14 PM CDT Postoperative hypothyroidism from Last 3 Months Results * TSH (11/09/2024 1:14 PM CDT) TSH 1.010 0.450 - 4.500 uIU/mL [facility] - 01 Blood 11/09/2024 1:14 PM CDT 11/09/2024 Narrative [facility] - 11/10/2024 10:10 AM CDT Performed at: [facility] [id number] Ski Binding Fitter And Repairer: Indio Tong PhD, Phone: [phone] Nicolasa Pineda MD LAB BLOOD ORDERABLE S Final Result [facility] - 01 * T4, free (11/09/2024 1:14 PM CDT) Pathologist [facility] T4,Free(Direct) 1.22 0.82 - 1.77 ng/dL [facility] - 01 Blood 11/09/2024 1:14 PM CDT 11/09/2024 Narrative [facility] - 11/10/2024 10:10 AM CDT Performed at: [facility] [id number] Ski Binding Fitter And Repairer: Indio Tong PhD, Phone: [phone] Nicolasa Pineda MD LAB BLOOD ORDERABLE S Final Result [facility] - from Last 3 Months Insurance [facility] HMO HEALTHCARE HMO Care Teams Tyre Builder Relationship Specialty Start Date End Date Ernie Dewitt MD [address] [place] [address] PCP - General Family Practice 06/25/23
[2025-01-07 11:22] LABS: Hemoglobin A1C 4.9 % (<5.7)
[2025-01-07 11:40] LABS: Alanine Aminotransferase 33 U/L (6-35); Albumin Level 4.2 g/dL (3.5-5.1); Alkaline Phosphatase 72 U/L (38-126); Anion Gap 3 mmol/L (4-12); Aspartate Amino Transferase 36 U/L (14-36); Bilirubin,Total 0.7 mg/dL (0.2-1.3); Blood Urea Nitrogen 14 mg/dL (7-17); Calcium 9.1 mg/dL (8.4-10.2); Carbon Dioxide 29 mmol/L (22-30); Chloride 106 mmol/L (98-107); Cholesterol 153 mg/dL (0-200); Estimated Glomerular Filt Rate > 60; Glucose 92 mg/dL (65-110); HDL Direct 97 mg/dL; Magnesium 2.0 mg/dL (1.6-2.3); Potassium 4.3 mmol/L (3.4-5.0); Sodium 138 mmol/L (137-145); Total Protein 6.9 g/dL (6.3-8.2); Triglycerides 31 mg/dL (<150)
[2025-01-07 12:05] LABS: Thyroid Stimulating Hormone Reflex 0.279 uIU/mL (0.465-4.68)
[2025-01-07 12:30] LABS: Free T4 Free Thyroxine Reflex 1.46 ng/dL (0.78-2.19)
[2025-01-07 12:34] LABS: Vitamin B12 789.0 pg/mL (239-931)
[2025-01-07 13:21] LABS: Total Triiodothyronine (T3) 1.02 NG/ML (0.82-1.58)
== END 2025-01-07 10:40 | disposition home or self-care (01) ==
LOC: ANHLAB 10:40
PROVIDERS: PCP Family Medicine; Visit Provider Nurse Practitioner Family
DX: E03.9 Hypothyroidism, unspecified (principal); F41.9 Anxiety disorder, unspecified; R41.9 Unspecified symptoms and signs involving cognitive functions and awareness; E53.8 Deficiency of other specified B group vitamins; E55.9 Vitamin D deficiency, unspecified; R73.9 Hyperglycemia, unspecified
CPT/HCPCS: 36415; 80053; 80061; 82306; 82607; 83036; 83735; 84439; 84443; 84480; 85025

== ENCOUNTER 2025-04-20 13:26 | Outpatient (CLI) | payer OTHER, SELFPAY ==
--- OUTSIDE RECORDS SUMMARY | 2025-04-20 13:43 | XMS_ITS | Encounter Summary ---
Author Organization [facility] Address [facility] [place] [address] Care Team Providers Care Art Instructor Name Role Phone Elo Medrano MD Primary Care Provider Unavailab Leoncio Stevenson MD Unavailable [phone] Katina Lua NP Unavailable [phone] Yash Reece MD Unavailable [phone] Vanessa Alvarado MD Primary Care Provider Encounter Details Date Type Department Care Team (Late st Contact Info) Description 09/27/2018 Abstract [facility] CONVERSION [address] [place] [address] , Generic Conversion, Social History Tobacco Use Types Packs/Day Years Used Date Smoking Tobacco: Never Smokeless Tobacco: Never Alcohol Use Standard Drinks/Week Comments Yes 0 (1 standard drink = 0.6 oz pure alcohol) weekend socially approx 5 drinks Comments No Sex and Gender Information Value Date Recorded Sex Assigned at Not on file Legal Sex Female 4:48 PM CDT Gender Identity Not on file Sexual Orientation Not on file documented as of this encounter Plan of Treatment Not on file documented as of this encounter Visit Diagnoses Not on filedocumented in this encounter Additional Health Concerns Infection Onset Date Last Indicated Resolved Time COVID-19 Rule Out 02/27/2021 02/27/2021 02/28/2021 6:52 PM DEPARTMENT OF MATHEMATICS CHAIR documented as of this encounter Care Teams Art Instructor Relationship Specialty Start Date End Date Elo Medrano MD PCP - General FAMILY PRACTICE 08/07/17 02/26/21 Vanessa Alvarado MD [address] [place] [address] PCP - General FAMILY PRACTICE 02/27/21 Leoncio Brandt MD [place] Suspension Cord Tier CARDIOVASCULAR DISEASE 08/07/17 Katina Lua NP [address] [facility] [address] [place] [address] [place] Suspension Cord Tier CARDIOVASCULAR DISEASE 01/01/18 Yash Reece MD [address] [place] [address] FAMILY PRACTICE 01/01/18 documented as of this encounter
--- OUTSIDE RECORDS SUMMARY | 2025-04-20 13:43 | XMS_ITS | Clinical Summary ---
Author Organization [facility] Address [address] [place] [address] Phone Care Team Providers Care Engine Cleaner Name Role Phone Unavailable Primary Care Provider Unavailabl e Allergies Active Allergy Reactions Criticality Noted Date Comments Lactase Hives High 03/23/2019 Medications escitalopram oxalate (LEXAPRO) 10 mg tablet Take 10 mg by mouth daily. Active levothyroxine 125 mcg tablet Take 125 mcg by mouth daily tire repair mechanic. Active PNV no.133/ferrous fum/folic ( ORAL) Take [...] on file Legal Sex Female 8:45 AM SAND POLISHER Gender Identity Not on file Sexual Orientation Not on file Last Filed Vital Signs Vital Sign Reading Time Taken Comments Blood Pressure 123/60 03/23/2019 9:11 AM SAND POLISHER Pulse - - Temperature - - Respiratory Rate - - Oxygen Saturation - - Inhaled Oxygen Concentration - - Weight 65.8 kg (145 lb) 03/23/2019 9:11 AM SAND POLISHER Height 162.6 cm (5' 4) 03/23/2019 9:11 AM SAND POLISHER Body Mass Index 24.89 03/23/2019 9:11 AM SAND POLISHER Plan of Treatment Health Maintenance Due Date Last Done Comments DTAP/TDAP/TD VACCINES (1 - Tdap) 2004 HEPATITIS B VACCINES (1 of 3 - 19+ 3-dose series) 05/24 HPV/Cotest (21-29) 2006 CERVICAL CANCER SCREENING 2015 HPV/Cotest (30-65) 2015 PAP SMEAR 2015 INFLUENZA VACCINE (#1) 2024 HPV VACCINES (No Doses Required) Completed Insurance * Guarantor: Varsha Marmolejo Account Type Relation to Patient Date of Phone Billing Address Personal/Family Self 1985 [address] [place] [address] [employer] BLUE PREFERRED
--- OUTSIDE RECORDS SUMMARY | 2025-04-20 13:43 | XMS_ITS | Clinical Summary ---
Author Organization [facility] Address [address] [place] [address] Care Team Providers Care General Neurologist Name Role Phone Unavailable Primary Care Provider Unavailabl e Social History Tobacco Use Types Packs/Day Years Used Date Smoking Tobacco: Never Assessed Comments Unknown Sex and Gender Information Value Date Recorded Sex Assigned at Not on file Legal Sex Female 3:23 PM EDT Gender Identity Not on file Sexual Orientation Not on file Plan of Treatment Not on file Medical Devices Not on file
--- OUTSIDE RECORDS SUMMARY | 2025-04-20 13:43 | XMS_ITS | Encounter Summary ---
Author Organization [facility] Address [address] [facility] [address] [place] [address] Care Team Providers Care Simplex Operator Name Role Phone Elo Medrano MD Primary Care Provider Vivi [place] MD Primary Care Provider Ernie Dewitt MD Primary Care Provider [phone] Encounter Details Date Type Department Care Team (Late st Contact Info) Description 03/31/2015 Orders Only [facility] Health Information Management [address] [place] [address] Scanning, Provider Social History Tobacco Use Types Packs/Day Years Used Date Smoking Tobacco: Never Assessed Comments Unknown Sex and Gender Information Value Date Recorded Sex Assigned at Not on file Legal Sex Female 8:07 AM MACHINE CAGE MAKER Gender Identity Not on file Sexual Orientation [...] on filedocumented in this encounter Care Teams Simplex Operator Relationship Specialty [place] [address] [place] [address] [place] [address] PCP - General Family Medicine 07/23/17 04/19/19 Vivi [place] MD [address] [facility] [place] [address] PCP - General Family Medicine 04/20/19 11/17/20 Ernie Dewitt MD [address] [place] [address] PCP - General Family Practice 06/25/23 documented as of this encounter
--- OUTSIDE RECORDS SUMMARY | 2025-04-20 13:43 | XMS_ITS | Clinical Summary ---
Author Organization [facility] Address [address] [place] [address] Care Team Providers Care Roustabout Pusher Name Role Phone Elo Medrano MD Primary Care Provider Source Comments [facility],non-owned Affiliates and Associated Physician Practices is amultiple site organization consisting of ambulatory clinics and hospital sitesin [place], [place], [place] and [place]. This disclosure is being madepursuant to the Care Everywhere program and may not contain all information available regarding this patient. Last updated 18.[facility] Active Problems Patient Care Coordination No te Formatting of this note migh t be different from the original. Nopp/mfcc 08/2018 Problem Noted Date Diagnosed Date Abnormal Sequential 2 -- Inc reased Risk for Fwhfu-Wbtoq-Hafel syndrome 08/28/2018 Family history of open neural tube defect Social History Tobacco Use Types Packs/Day Years Used Date Smoking Tobacco: Never Assessed Comments No Sex and Gender Information Value Date Recorded Sex Assigned at Not on file Legal Sex Female 8:39 AM COAL GRADER Gender Identity Not on file Sexual Orientation Not on file Plan of Treatment Upcoming Encounters Date Type Department Care Team (Late st Contact Info) Description 05/18/2025 9:00 AM COAL GRADER Appointment [facility] Women's Health Maternal & Care [address] [place] [id number] Health Maintenance Due Date Last Done Comments HIV SCREENING 2000 HEPATITIS C SCREENING 06/07/2003 DTAP/TDAP/TD VACCINES (1 - Tdap) 2004 HEPATITIS B VACCINE (1 of 3 - 19+ 3-dose series) 2004 PAP SMEAR 2006 HPV VACCINE (1 - 3-dose SCDM series) 2012 DEPRESSION SCREENING 04/22/2024 COVID-19 VACCINE (4 - 2024-2 6 season) 2024 04/26/2021, 06/10/2020, 05/12/2020 INFLUENZA VACCINE (#1) 2024 ZOSTER VACCINE (1 of 2) 2035 HIB VACCINE Aged Out No longer eligi ble based on patient's age to complete this topic MENINGOCOCCAL (Group B) VACCINE SHARED DECISION-MAKING Aged Out No longer eligible based on patient's age to complete this topic MENINGOCOCCAL GROUPS A/C/Y/W VACCINE Aged Out No longer eligible b ased on patient's age to complete this topic PNEUMOCOCCAL VACCINE Aged Out No long er eligible based on patient's age to complete this topic Insurance * Guarantor: VARSHA CLEMENT Account Type Relation to Patient Date of Phone Billing Address Personal/Family 1985 [address] [place] [address] [employer] Member Subscriber Plan / Payer (Ef fective 2024-Present) Name:Varsha Clement Member ID:Not on file Relation to Subscriber:Spouse Name:Miryam Clement (Home) Address: [address] [place] [address] Payer ID:[id number] (NAIC) Group ID:Not on file Type:PPO Address: [address] [place] [id number] Care Teams Roustabout Pusher Relationship Specialty Start Date End Date Elo Medrano MD PCP - General Family Medicine 08/29/18
--- OUTSIDE RECORDS SUMMARY | 2025-04-20 13:43 | XMS_ITS | Clinical Summary ---
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 Active Cyanocobalamin (VITAMIN B 12 OR) Take 1,000 mg by mouth every other day. Active psyllium 51.7 % packet Take 1 packet by mouth daily. Active ranitidine 150 MG tablet Take 150 mg by mouth 2 (two) times daily as needed. Active levothyroxine 125 MCG tablet TK 1 T PO QD 3 06/29/2017 Active metoprolol tartrate 25 MG tablet Please take 1 tab [address] scan and take the second tab with you to your testing. 2 tablet 01/20/2018 Active Active Problems Problem Noted Date Diagnosed Date Palpitations 01/01/2018 Tachycardia 08/13/2017 Systolic murmur 08/13/2017 Hypothyroidism (acquired) 08/13/2017 Depression with anxiety 08/13/2017 Overview (08/13/2017): 02/20/17 Patient doing well on current regimen. Will continue. f/u 3 months. 05/29/17 Patient doing well. f/u 6 months. 08/28/16 Patient states that since having her baby 3 weeks ago and being off her lexapro for a month, she is having trouble with anxiety. She restarted lexapro in the hospital and feels some benefit without resolution. Discussed treatment plan. Will increase dose to 20mg. Patient in agreement. 09/19/16 Patient presents for follow up on anxiety. She is doing well since increasing her lexapro. Will continue. Patient would like to try to go back to 10mg after a couple months. Agreed that it's reasonable to try. 11/19/16 Patient states that she is in a good routine with her baby. She feels much better. She would like to cut back on her dose. Will reduce back to 10mg. Instructed patient to call if symptoms returned. Patient verbalized understanding. 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 Height 165.1 cm (5' 5) 03/17/2018 4:52 PM MINERAL SURVEYING TECHNICIAN Body Mass Index 21.63 03/17/2018 4:52 PM MINERAL SURVEYING TECHNICIAN Plan of Treatment Health Maintenance Due Date Last Done Comments Cervical Cancer Screening Pa p Smear (Age 30 to 64) Every 3 Years 1985 Annual Physical 1988 Hepatitis C 2003 Hepatitis B Vaccines (1 of 3 - 19+ 3-dose series) 2004 HPV Vaccines (1 - 3-dose SCD M series) 2012 Cervical Cancer Screening Pa p with HPV Testing (Age 30 to 64) Every 5 Years 2015 Cervical Cancer Screening wi th HPV 2015 COVID-19 Vaccine (3 - 2024-2 6 season) 2024 06/10/2020, 05/12/2020 Influenza Adult (#1) 2025 DTaP, Tdap and Td Vaccines ( 3 - Td or Tdap) 12/11/2028 12/11/2018, 05/06/2014 Hepatitis A Vaccines Aged Out No long er eligible based on patient's age to complete this topic Meningococcal B Vaccine Aged Out No l onger eligible based on patient's age to complete this topic Meningococcal Vaccine Aged Out No glenny rosemary eligible based on patient's age to complete this topic Pneumococcal Vaccine: Pediatrics (0 to 5 Years) and At-Risk Patients (6 to 49 Years) Aged Out No longer eligible b ased on patient's age to complete this topic RSV Immunizations Under 20 Months Aged Out No longer eligible b ased on patient's age to complete this topic Insurance * Guarantor: Varsha Clement Account Type Relation to Patient Date of Phone Billing Address Personal/Family Self 1985 [address] [facility] [employer] Care Teams Plaster Model And Mold Maker Relationship Specialty Start Date End Date Vanessa Alvarado MD [address] [place] [address] PCP - General FAMILY PRACTICE 02/27/21 Leoncio Brandt MD [place] Chief Deputy Coroner CARDIOVASCULAR DISEASE 08/07/17 Katina Lua NP [place] [facility] [address] [place] [address] [place] [employer] Deputy Coroner CARDIOVASCULAR DISEASE 01/01/18 Yash Reece MD [address] [place] [address] FAMILY PRACTICE 01/01/18
--- OUTSIDE RECORDS SUMMARY | 2025-04-20 13:43 | XMS_ITS | Clinical Summary ---
Author Organization [facility] [address] [place] [id number] Care Team Providers Care [employer] Management Professor Name Role Phone Ernie Dewitt MD Primary Care Provider [phone] Allergies Active Allergy Reactions Criticality Noted Date [...] Synthroid 75 mcg tabletIndications:P ostoperative hypothyroidism Take one tab daily. 30 tablet 2 5 Active Active Problems Problem Noted Date [...] Encounters Date Type Department Care Team Description 02/26/2025 Results Follow-Up [facility] [address] [address] Nicolasa Hamlin MD TSH, T4, free from Last 3 Months Surgical History Surgery [...] on file Legal Sex Female 8:07 AM INTENSIVE CARE UNIT NURSE Gender Identity Not on file Sexual Orientation [...] Date/Time Associated Diagnosis Comments T4, FREE Routine 02/25/2025 11:26 AM INTENSIVE CARE UNIT NURSE Postoperative hypothyroidism TSH Routine 02/25/2025 11:25 AM INTENSIVE CARE UNIT NURSE Postoperative hypothyroidism from Last 3 Months Results * T4, free (02/25/2025 11:26 AM INTENSIVE CARE UNIT NURSE) T4,Free(Direct) 1.30 0.82 - 1.77 ng/dL [facility] - 01 Blood 02/25/2025 11:2 6 AM INTENSIVE CARE UNIT NURSE 02/25/2025 Narrative [facility] - 02/26/2025 8:13 AM INTENSIVE CARE UNIT NURSE Performed at: 01 - [facility] [id number] Behavioral Modification Assistant: Indio Tong PhD, Phone: [phone] Nicolasa Pineda MD LAB BLOOD ORDERABLE S Final Result Performing Organization Address City/[facility]/ZIP Co de Phone Number [facility] - 01 * TSH (02/25/2025 11:25 AM INTENSIVE CARE UNIT NURSE) [facility] TSH 0.523 0.450 - 4.500 uIU/mL [facility] - 01 Blood 02/25/2025 11:2 5 AM INTENSIVE CARE UNIT NURSE 02/25/2025 Narrative [facility] - 02/26/2025 9:11 AM INTENSIVE CARE UNIT NURSE Performed at: [facility] [id number] Behavioral Modification Assistant: Indio Tong PhD, Phone: [phone] Nicolasa Pineda MD LAB BLOOD ORDERABLE S Final Result Performing Organization Address City/[facility]/ZIP Co de Phone Number [facility] - 01 from Last 3 Months Insurance [facility] HMO O Care Teams [employer] Management Professor Relationship Specialty Start Date End Date Ernie Dewitt MD [address] [place] [id number] PCP - General Family Practice 06/25/23
[2025-04-20 19:01] LABS: Hepatitis B Surface Antigen Negative (Negative)
[2025-04-21 07:09] LABS: Varicella-Zoster Ab, IgG Reactive (Non Reactive)
== END 2025-04-20 13:27 | disposition home or self-care (01) ==
PROVIDERS: PCP Family Medicine; Visit Provider Nurse Practitioner Family
DX: Z34.90 Encounter for supervision of normal pregnancy, unspecified, unspecified trimester (principal); Z3A.12 12 weeks gestation of pregnancy
CPT/HCPCS: 36415; 86787; 86850; 86900; 86901; 87340